=== PATIENT | female | born 1980 | race Caucasian/White ===

== ENCOUNTER 2016-08-12 08:29 | Emergency (ER) | payer OTHER ==
--- NOTE | 2016-08-12 11:16 | DIAGNOSTIC IMAGING REPORT ---
PROCEDURE: XR LUMBAR SPINE 2 OR 3 VIEWS INDICATION: LOWER BACK PAIN TECHNIQUE: Three views. COMPARISON: None. FINDINGS: Osseous structures and disc spaces are normal. No evidence of an acute process or fracture. IMPRESSION: 1. Negative lumbar spine.
--- NOTE | 2016-08-12 11:55 | ED NURSING NOTES ---
Clinical Report - Nurs[facility] [address] [place] [address] 08/12/2016 8:32 [id number] Triage time 08:45 Aug 12 2016. Acuity: LEVEL 3. Chief Complaint: ABDOMINAL PAIN and LEFT-SIDED FLANK PAIN. 08:51 08/12/16. SEPSIS SCREEN: Sepsis Screen. Negative (no infection suspected/documented). TERI COMA SCORE: Teri Coma Scale: 15- eyes open spontaneously (4); best verbal response- oriented x 4 (5); best motor response- obeys commands (6). --08:51 Tosha Isaac R.N. 08:47 08/12/16. BP: 123/84. HR: 83. RR: 18. O2 saturation: 100% on room air. Temp: 98.8 F (oral). Pain level now: 5/10. Additional comments: LLQ pain radiates to low back. --08:51 Tosha Isaac R.N. Weight: 95.7 kg stated. Height/Length: 68 inches Per Patient. BMI: 32.1. --08:51 Tosha Isaac R.N. Medications Claritin Oral. Mucinex Oral. Omeprazole Oral. --08:50 Tosha Isaac R.N. Allergies Penicillin. --08:50 Tosha Isaac R.N. History Arrived by private vehicle. Historian: patient. Primary physician (Dr Verduzco). Onset. (Wednesday, gradually getting worse.). ( Patient has history of stones back in 2009). She has had abdominal pain. The pain is described as located in the LLQ and radiating to the back and associated with nausea. 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 PAST MEDICAL HX: Last normal menstrual period was 2 weeks ago. SOCIAL HX: Smoker- current status unknown. Occasional alcohol use; consumes wine. No drug use. No infectious disease exposure. ABUSE ASSESSMENT: No report of abuse. --08:51 Tosha Isaac R.N. PROBLEMS: Dental Pain. Acid reflex. Sprain. Hyperemesis Gravidarum. Insomnia. Anxiety Reaction. Depression. --08:50 Tosha Isaac R.N. ADDITIONAL SURGERIES: no known surgeries. Interventions ID band on patient. To treatment room. --08:51 Tosha Isaac R.N. PHYSICAL ASSESSMENT 08:52 08/12/16. Ambulatory to room. Patient gowned. GENERAL / NEURO / PSYCH: Alert. Oriented X 4. Appears in no acute distress. HEENT: Mucous membranes are pink. RESPIRATORY: Respirations not labored. Breath sounds within normal limits. CVS: Normal heart rate and rhythm. Capillary refill less than 2 seconds. GI / : Abdomen soft. Abdominal tenderness in the left lower quadrant. Bowel sounds within normal limits. She has had frequency of urination. No pain with urination. Patient is not incontinent of urine. SKIN: Skin is warm. --08:52 Tosha Isaac R.N. NURSING PROGRESS NOTES 08:53 08/12/16. The plan of care for this patient has been created. Patient gowned. Head of bed elevated. Reassurance given. Two patient identifiers checked. Call light placed in reach. Side rails up x 1. Bed placed in lowest position. Brakes of bed on. Patient ready for evaluation- chart flagged and ED physician notified. --08:53 Tosha Isaac R.N. 10:38 states that her pain is now across her lower abdomen and constant, worse now than when she came in. --10:39 Jessica Garcia R.N. 11:40 08/12/16. BP: 126/74 (regular adult cuff) taken on the left arm. HR: 88. RR: 16. O2 saturation: 97% on room air. Pain level now: 07/27. --11:40 Tosha Isaac R.N. DISPOSITION / DISCHARGE Departure time: 12:Aug 12 2016. Condition at departure: improved. No learning barriers present. Discharge instructions provided and reviewed with the patient. Reviewed warnings. Reviewed medication(s). Treatments reviewed. Reviewed referrals. Work note given. Patient verbalized understanding. Written instructions provided in Estonian. The patient was discharged home. She left the Emergency Department ambulatory and via private vehicle. Patient driving. --12:09 Rema Webber R.N. 12:08 08/12/16. BP: 128/79. HR: 84. RR: 18. O2 saturation: 100%. Temp: 98.7 F. Pain level now 07/27. --12:09 Rema Webber R.N. Locked/Released at 08/17/2016 20:06 by Tosha Isaac R.N.
--- NOTE | 2016-08-12 11:55 | ED CLINICAL REPORT ---
Clinical Report - Physicians/Mid Levels [facility] [address] [place] [address] 08/12/2016 8:32 Patient: JOO ANDRE Time Seen: 09:18; initial patient contact. HISTORY OF PRESENT ILLNESS Chief Complaint: BACK PAIN. Onset- about 1 1/2 weeks ago and it is still present. It is described as being mild and radiating to the right hip and to the left hip. The quality is noted to be aching. Modifying factors. Not worsened by anything. Not relieved by anything. No bladder dysfunction, bowel dysfunction, sensory loss or motor loss. Patient denies an injury but injury to the head or neck. Mechanism of injury- (Unknown). Occurred at home. Similar symptoms previously: None. Recent medical care: Not recently seen/assessed. REVIEW OF SYSTEMS No fever, chills, difficulty with urination, urinary frequency or hematuria. All systems otherwise negative, except as recorded above. PAST HISTORY Dental Pain. Acid reflex. Sprain. Hyperemesis Gravidarum. Insomnia. Anxiety Reaction. Depression. SOCIAL HISTORY Smoker - current status unknown. Occasional alcohol use. No drug use. ADDITIONAL NOTES The nursing notes have been reviewed. PHYSICAL EXAM Vital Signs: 08/12/2016 08:47 BP: 123/84. HR: 83. RR: 18. O2 saturation: 100%. Temp: 98.8 F. Pain level now: 5/10. Have been reviewed as normal. Appearance: Alert. No acute distress. Abdomen: No visible injury. Soft and nontender. Bowel sounds normal. No organomegaly. No mass. Back: Mild muscle spasm of the right and left posterior back. Mild soft tissue tenderness in the right lower and left lower lumbar area. No vertebral point tenderness, CVA tenderness or limitation in ROM. Extremities: Extremities exhibit normal ROM. Extremities nontender. Neuro: Oriented X 3. Mood/affect normal. No motor deficit. No sensory deficit. Straight leg raising: negative on the right and negative on the left. Reflexes normal. LABS, X-RAYS, AND EKG LS-Spine X-rays: Soft tissues normal. No fracture or subluxation. No bony lesion. Views: AP and lateral. Technique: good. The X-rays were independently viewed by me and interpreted contemporaneously by me. Prior films were not available for comparison. Interpretation time: 11:34. PROGRESS AND PROCEDURES Disposition: Discharged home in good condition. Condition: good. CLINICAL IMPRESSION Muscle strain of the low back. INSTRUCTIONS No lifting greater than 10 lbs. Do not work today. Your Current Medications: CONTINUE TAKING THE FOLLOWING MEDICATIONS: Claritin Oral. Mucinex Oral. Omeprazole Oral. Prescription Medications: Diclofenac 50 mg tablets: take 1 tablet orally every 8 hours as needed for pain or stiffness. Dispense thirty (30). No refill. Follow-up: Follow up with your doctor in two days. Call for an appointment. Screening today revealed the patient's blood pressure to be in the pre-hypertensive range. The patient should follow up with a primary care provider for blood pressure management. (Electronically signed by Memo Theodore Dr. 08/12/2016 14:11)
--- NOTE | 2016-08-12 11:55 | ED ORDER SUMMARY ---
..... Patient: JOO ANDRE OrderSheet [facility] VisitID: [id number] [place] [address] 36y, F Registration Date/Time: 08/12/2016 ORDER SHEET Weight: 95.7 kg (stated) Allergies: Penicillin GENERAL ORDERS: UA-Culture if indicated Urgent (09:18 08/12/2016 Juan Carlos King) (Ack 9:26 LNations ER Tech1) (9:26 LNations ER Tech1) Urine Urgent (09:18 08/12/2016 Juan Carlos King) (Ack 9:26 LNations ER Tech1) (9:26 LNations ER Tech1) Lumbar Spine 2 or 3V Urgent (10:42 08/12/2016 Juan Carlos King) (Ack 10:45 LNations ER Tech1) (10:54 LNations ER Tech1) MEDICATION ORDERS: IV FLUIDS: ORDER SHEET NOTES: [Electronically signed by Memo Theodore Dr. (14:11 08/12/2016)] [Electronically signed by Tosha Isaac R.N. (20:06 08/17/2016)] [Electronically locked/signed by Tosha Isaac R.N. (20:08/17/2016)]
--- NOTE | 2016-08-12 11:55 | ED NURSING NOTES ---
Clinical Report - Nurses [facility] [address] [place] [address] 08/12/2016 8:32 [id number] Triage time 08:45 Aug 12 2016. Acuity: LEVEL 3. Chief Complaint: ABDOMINAL PAIN and LEFT-SIDED FLANK PAIN. 08:51 08/12/16. SEPSIS SCREEN: Sepsis Screen. Negative (no infection suspected/documented). TERI COMA SCORE: Teri Coma Scale: 15- eyes open spontaneously (4); best verbal response- oriented x 4 (5); best motor response- obeys commands (6). --08:51 Tosha Isaac R.N. 08:47 08/12/16. BP: 123/84. HR: 83. RR: 18. O2 saturation: 100% on room air. Temp: 98.8 F (oral). Pain level now: 5/10. Additional comments: LLQ pain radiates to low back. --08:51 Tosha Isaac R.N. Weight: 95.7 kg stated. Height/Length: 68 inches Per Patient. BMI: 32.1. --08:51 Tosha Isaac R.N. Medications Claritin Oral. Mucinex Oral. Omeprazole Oral. --08:50 Tosha Isaac R.N. Allergies Penicillin. --08:50 Tosha Isaac R.N. History Arrived by private vehicle. Historian: patient. Primary physician (Dr Verduzco). Onset. (Wednesday, gradually getting worse.). ( Patient has history of stones back in 2009). She has had abdominal pain. The pain is described as located in the LLQ and radiating to the back and associated with nausea. 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 PAST MEDICAL HX: Last normal menstrual period was 2 weeks ago. SOCIAL HX: Smoker- current status unknown. Occasional alcohol use; consumes wine. No drug use. No infectious disease exposure. ABUSE ASSESSMENT: No report of abuse. --08:51 Tosha Isaac R.N. PROBLEMS: Dental Pain. Acid reflex. Sprain. Hyperemesis Gravidarum. Insomnia. Anxiety Reaction. Depression. --08:50 Tosha Isaac R.N. ADDITIONAL SURGERIES: no known surgeries. Interventions ID band on patient. To treatment room. --08:51 Tosha Isaac R.N. PHYSICAL ASSESSMENT 08:52 08/12/16. Ambulatory to room. Patient gowned. GENERAL / NEURO / PSYCH: Alert. Oriented X 4. Appears in no acute distress. HEENT: Mucous membranes are pink. RESPIRATORY: Respirations not labored. Breath sounds within normal limits. CVS: Normal heart rate and rhythm. Capillary refill less than 2 seconds. GI / : Abdomen soft. Abdominal tenderness in the left lower quadrant. Bowel sounds within normal limits. She has had frequency of urination. No pain with urination. Patient is not incontinent of urine. SKIN: Skin is warm. --08:52 Tosha Isaac R.N. NURSING PROGRESS NOTES 08:53 08/12/16. The plan of care for this patient has been created. Patient gowned. Head of bed elevated. Reassurance given. Two patient identifiers checked. Call light placed in reach. Side rails up x 1. Bed placed in lowest position. Brakes of bed on. Patient ready for evaluation- chart flagged and ED physician notified. --08:53 Tosha Isaac R.N. 10:38 states that her pain is now across her lower abdomen and constant, worse now than when she came in. --10:39 Jessica Garcia R.N. 11:40 08/12/16. BP: 126/74 (regular adult cuff) taken on the left arm. HR: 88. RR: 16. O2 saturation: 97% on room air. Pain level now: 07/27. --11:40 Tosha Isaac R.N. DISPOSITION / DISCHARGE Departure time: 12:Aug 12 2016. Condition at departure: improved. No learning barriers present. Discharge instructions provided and reviewed with the patient. Reviewed warnings. Reviewed medication(s). Treatments reviewed. Reviewed referrals. Work note given. Patient verbalized understanding. Written instructions provided in Lao. The patient was discharged home. She left the Emergency Department ambulatory and via private vehicle. Patient driving. --12:09 Rema Webber R.N. 12:08 08/12/16. BP: 128/79. HR: 84. RR: 18. O2 saturation: 100%. Temp: 98.7 F. Pain level now 07/27. --12:09 Rema Webber R.N. Locked/Released at 08/17/2016 20:06 by Tosha Isaac R.N.
--- NOTE | 2016-08-12 11:55 | ED ORDER SUMMARY ---
..... Patient: JOO ANDRE OrderSheet [facility] VisitID: [id number] [place] [address] 36y, F Registration Date/Time: 08/12/2016 ORDER SHEET Weight: 95.7 kg (stated) Allergies: Penicillin GENERAL ORDERS: UA-Culture if indicated Urgent (09:18 08/12/2016 Juan Carlos King) (Ack 9:26 LNations ER Tech1) (9:26 LNations ER Tech1) Urine Urgent (09:18 08/12/2016 Juan Carlos King) (Ack 9:26 LNations ER Tech1) (9:26 LNations ER Tech1) Lumbar Spine 2 or 3V Urgent (10:42 08/12/2016 Juan Carlos King) (Ack 10:45 LNations ER Tech1) (10:54 LNations ER Tech1) MEDICATION ORDERS: IV FLUIDS: ORDER SHEET NOTES: [Electronically signed by Memo Theodore Dr. (14:11 08/12/2016)] [Electronically signed by Tosha Isaac R.N. (20:06 08/17/2016)] [Electronically locked/signed by Tosha Isaac R.N. (20:08/17/2016)]
--- NOTE | 2016-08-17 20:06 | ED DISCHARGE INSTRUCTIONS ---
Patient: JOO ANDRE General Instructions [facility] VisitID: [id number] [place] [address] 36y, F Registration Date/Time: 08/12/2016 Muscle strain of the low back. INSTRUCTIONS No lifting greater than 10 lbs. Do not work today. Your Current Medications: CONTINUE TAKING THE FOLLOWING MEDICATIONS: Claritin Oral. Mucinex Oral. Omeprazole Oral. Prescription Medications: Diclofenac 50 mg tablets: take 1 tablet orally every 8 hours as needed for pain or stiffness. Dispense thirty (30). No refill. Follow-up: Follow up with your doctor in two days. Call for an appointment. Screening today revealed the patient's blood pressure to be in the pre-hypertensive range. The patient should follow up with a primary care provider for blood pressure management. ADDITIONAL INFORMATION Back Pain [Acute Or Chronic] Back pain is usually caused by an injury to the muscles or ligaments of the spine. Sometimes the disks that separate each bone in the spine may bulge and cause pain by pressing on a nearby nerve. Back pain may also appear after a sudden twisting/bending force (such as in a car accident), after a simple awkward movement, or lifting something heavy with poor body positioning. In either case, muscle spasm is often present and adds to the pain. Acute back pain usually gets better in one to two weeks. Back pain related to disk disease, arthritis in the spinal joints or spinal stenosis (narrowing of the spinal canal) can become chronic and last for months or years. Unless you had a physical injury (for example, a car accident or fall) X-rays are usually not ordered for the initial evaluation of back pain. If pain continues and does not respond to medical treatment, x-rays and other tests may be performed at a later time. Home Care: You may need to stay in bed the first few days. But, as soon as possible, begin sitting or walking to avoid problems with prolonged bed rest (muscle weakness, worsening back stiffness and pain, blood clots in the legs). When in bed, try to find a position of comfort. A firm mattress is best. Try lying flat on your back with pillows under your knees. You can also try lying on your side with your knees bent up towards your chest and a pillow between your knees. Avoid prolonged sitting. This puts more stress on the lower back than standing or walking. During the first two days after injury, apply an ICE PACK to the painful area for 20 minutes every 2-4 hours. This will reduce swelling and pain. HEAT (hot shower, hot bath or heating pad) works well for muscle spasm. You can start with ice, then switch to heat after two days. Some patients feel best alternating ice and heat treatments. Use the one method that feels the best to you. You may use acetaminophen (Tylenol) or ibuprofen (Motrin, Advil) to control pain, unless another pain medicine was prescribed. [NOTE: If you have chronic liver or kidney disease or ever had a stomach ulcer or GI bleeding, talk with your doctor before using these medicines.] Be aware of safe lifting methods and do not lift anything over 15 pounds until all the pain is gone. Follow Up with your doctor or this facility if your symptoms do not start to improve after one week. Physical therapy may be needed. [NOTE: If X-rays were taken, they will be reviewed by a radiologist. You will be notified of any new findings that may affect your care.] Get Prompt Medical Attention if any of the following occur: Pain becomes worse or spreads to your legs Weakness or numbness in one or both legs Loss of bowel or bladder control Numbness in the groin or genital area You have been given the following additional information: Back Pain (Acute Or Chronic) No lifting greater than 10 lbs. Do not work today. (Electronically signed by Memo Theodore Dr. 08/12/2016 14:11)
--- NOTE | 2016-08-17 20:06 | ED MAR SUMMARY ---
..... Medication Administration Record [facility] [address] [place], [place] [id number] Patient: JOO ANDRE Visit ID: [id number] 36y, F Weight: 95.7 kg Height/Length: 68 in BMI: 32.1 ALLERGIES: Penicillin
--- NOTE | 2016-08-17 20:06 | ED MAR SUMMARY ---
..... Medication Administration Record [facility] [address] [place], [place] [id number] Patient: JOO ANDRE Visit ID: [id number] 36y, F Weight: 95.7 kg Height/Length: 68 in BMI: 32.1 ALLERGIES: Penicillin
--- NOTE | 2016-08-17 20:06 | ED MED RECONCILIATION SUMMARY ---
Patient: JOO ANDRE Medication Reconciliation Report [facility] VisitID: [id number] [address] [place] [address] 36y, F Registration Date/Time: 08/12/2016 Weight: 95.7 kg Height/Length: 68 in. BMI: 32.1 ALLERGIES: Penicillin The patient's Home Medications are listed below: CONTINUE TAKING THE FOLLOWING MEDICATIONS: Claritin Oral Mucinex Oral Omeprazole Oral The source(s) of the original Home Medication information: Not obtained. The following Medications were given to the patient in the Emergency Department: None. The following Medications were prescribed to the patient: Diclofenac 50 mg tablets: take 1 tablet orally every 8 hours as needed for pain or stiffness. Dispense thirty (30). No refill. -- Memo Theodore Dr.
--- NOTE | 2016-08-17 20:06 | ED MED RECONCILIATION SUMMARY ---
Patient: JOO ANDRE Medication Reconciliation Report [facility] VisitID: [id number] [address] [place] [address] 36y, F Registration Date/Time: 08/12/2016 Weight: 95.7 kg Height/Length: 68 in. BMI: 32.1 ALLERGIES: Penicillin The patient's Home Medications are listed below: CONTINUE TAKING THE FOLLOWING MEDICATIONS: Claritin Oral Mucinex Oral Omeprazole Oral The source(s) of the original Home Medication information: Not obtained. The following Medications were given to the patient in the Emergency Department: None. The following Medications were prescribed to the patient: Diclofenac 50 mg tablets: take 1 tablet orally every 8 hours as needed for pain or stiffness. Dispense thirty (30). No refill. -- Memo Theodore Dr.
== END 2016-08-12 12:05 | disposition home or self-care (01) ==
LOC: ED SRH 08:29
DX: S39.012A Strain of muscle, fascia and tendon of lower back, initial encounter (principal); X58.XXXA Exposure to other specified factors, initial encounter; Y93.9 Activity, unspecified; Y92.019 Unspecified place in single-family (private) house as the place of occurrence of the external cause; Y99.9 Unspecified external cause status; Z79.899 Other long term (current) drug therapy; Z88.0 Allergy status to penicillin
CPT/HCPCS: 90004; 93070